=== PATIENT | female | born 1980 | race Caucasian/White ===

== ENCOUNTER 2023-01-27 13:05 | Inpatient (IN) | payer OTHER ==
[2023-01-27] MEDS ORDERED: DEXTROSE 5%-LACTATED RINGERS 1,000 ML IV SCH (16:50)
[2023-01-27] MEDS ORDERED: BETAMET ACET/BETAMET NA PH 30 MG/5 ML VIAL ONE (16:53)
[2023-01-27] MEDS ORDERED: BETAMET ACET/BETAMET NA PH 30 MG/5 ML VIAL IM ONE (17:00)
[2023-01-27] MEDS ORDERED: AMPICILLIN SODIUM 2 GM VIAL ONE (17:06)
[2023-01-27 17:29] VITALS: BMI 27.4
[2023-01-27] MEDS ORDERED: AMPICILLIN - 2 GM in SODIUM CHLORIDE 100 ML IVPB SCH (17:40)
[2023-01-27 17:58] LABS: BASO % 0.3 % (0-2.0); EOS % 0.2 % (0-4.5); HEMATOCRIT 34.2 % (32.4-45.2); HEMOGLOBIN 11.4 GM/dL (10.7-15.3); INR 0.98 (0.83-1.09); LYMPH % 20.2 % (8-40); MCH 27.7 pg (25.7-33.7); MCHC 33.2 g/dl (32.0-36.0); MEAN CELL VOLUME 83.4 fl (80-96); MEAN PLT VOLUME 7.9 fl (7.5-11.1); MONO % 7.5 % (3.8-10.2); NEUT % 71.8 % (42.8-82.8); PLATELET COUNT 209 10^3/uL (134-434); PROTHROMBIN TIME (PATIENT) 11.4 SEC (9.7-13.0); RDW 13.2 % (11.6-15.6)
[2023-01-27 18:01] LABS: ACTIVATED PTT 27.7 SECONDS (25.2-36.5)
[2023-01-27 18:09] LABS: POTASSIUM 3.8 mmol/L (3.5-5.1)
[2023-01-27 18:11] LABS: ALBUMIN 2.8 g/dl (3.4-5.0); BLOOD UREA NITROGEN 8.2 mg/dL (7-18); CALCIUM 8.6 mg/dL (8.5-10.1)
[2023-01-27 18:14] LABS: CREATININE 0.5 mg/dL (0.55-1.3)
[2023-01-27 18:16] LABS: BILIRUBIN,TOTAL 0.3 mg/dL (0.2-1); TOT PROT 6.5 g/dl (6.4-8.2)
[2023-01-27 18:35] LABS: SYPHILIS W/ RPR CONF NON-REACTIVE (NONREACTIVE)
[2023-01-27 19:04] LABS: HIV INTERPRETATION NEGATIVE (NEGATIVE)
[2023-01-27 20:07] LABS: COCAINE, UR NEGATIVE (NEGATIVE)
[2023-01-27 20:09] LABS: METHADONE, UR NEGATIVE (NEGATIVE); OPIATES, URI NEGATIVE (NEGATIVE); PHENCYCLIDINE,URINE NEGATIVE (NEGATIVE); URINE AMPHETAMINES NEGATIVE (NEGATIVE); URINE BARBITURATES NEGATIVE (NEGATIVE); URINE BENZODIAZEPINES NEGATIVE (NEGATIVE)
[2023-01-27] MEDS ORDERED: CITRIC ACID/SODIUM CITRATE 30 ML UNIT-DOSE CUP PO ONE (20:45)
[2023-01-27] MEDS ORDERED: MISOPROSTOL 200 MCG TABLET ONE (20:50)
[2023-01-27] MEDS ORDERED: morphine SULFATE/PF 1 MG/2 ML (2cc Syringe - QUVA) ONE (21:05)
[2023-01-27] MEDS ORDERED: FENTANYL CITRATE/PF 50 MCG/ML VIAL ONE (21:05)
[2023-01-27] MEDS ORDERED: METHYLERGONOVINE MALEATE 0.2 MG/1 ML AMP IM PRN (22:41)
[2023-01-27] MEDS ORDERED: ACETAMINOPHEN 325 MG TABLET (FP) PO PRN (22:41)
[2023-01-27] MEDS ORDERED: ACETAMINOPHEN 1000 MG/100 ML BAG IVPB PRN (22:44)
[2023-01-27] MEDS ORDERED: ONDANSETRON 4 MG/2 ML VIAL IVPUSH PRN (22:45)
[2023-01-27] MEDS ORDERED: morphine SULFATE/PF 1 MG/2 ML (2cc Syringe - QUVA) SPIN ONE (22:45)
[2023-01-27] MEDS ORDERED: KETOROLAC TROMETHAMINE 30 MG/1 ML VIAL IVPUSH ONE (22:47)
[2023-01-27] MEDS ORDERED: ACETAMINOPHEN 1000 MG/100 ML BAG IVPB ONE (22:47)
[2023-01-27 23:05] LABS: CORD BASE EXCESS -0.2 mmol/L (0-2); CORD HCO3 26.4 mmHg (20-29); CORD PCO2 50.4 mmHg (30-78); CORD pH 7.337 (7.14-7.44)
[2023-01-27 23:06] LABS: CORD HCO3 21.4 mmHg (20-29); CORD PCO2 36.5 mmHg (30-78); CORD pH 7.386 (7.14-7.44)
[2023-01-27] MEDS: OXYTOCIN 20 UNITS in 0.9% NS 20 UNIT/1,000 ML INFUS.BAG IV SCH (23:10)
[2023-01-28] MEDS ORDERED: CEFAZOLIN SODIUM 2 GM VIAL ONE (00:23)
[2023-01-28] MEDS ORDERED: DEXTROSE 5%-WATER 100 ML IVPB ONE (00:23)
[2023-01-28] MEDS: CEFAZOLIN SODIUM 2 GM in DEXTROSE 5%-WATER 100 ML IVPB SCH ×3 (00:45→13:57)
[2023-01-28 08:45] LABS: HEMOGLOBIN 10.6 GM/dL (10.7-15.3); MCH 27.3 pg (25.7-33.7); MCHC 32.2 g/dl (32.0-36.0); MEAN CELL VOLUME 84.8 fl (80-96); MEAN PLT VOLUME 8.1 fl (7.5-11.1); PLATELET COUNT 229 10^3/uL (134-434); RBC 3.89 M/mm3 (3.60-5.2); RDW 12.8 % (11.6-15.6); WHITE BLOOD COUNT 21.3 K/mm3 (4.0-10.0)
[2023-01-28] MEDS: IBUPROFEN 600 MG TABLET (FP) PO PRN ×2 (09:04→21:11)
[2023-01-28] MEDS: ENOXAPARIN NA (PORCINE) 40 MG/0.4 ML DISP.SYRIN SQ SCH (09:05)
[2023-01-28 09:35] LABS: ANISOCYTOSIS 0; HELMET CELLS 0; HOWELL-JOLLY BODIES 0; MACROCYTOSIS 0; OVALOCYTE 0; ROULEAU 0; SICKELED CELLS 0; TARGET CELLS 0; TEAR DROP CELLS 0; TOXIC GRANULATION 0
[2023-01-28] MEDS: OXYTOCIN 20 UNITS in 0.9% NS 20 UNIT/1,000 ML INFUS.BAG IV SCH ×2 (09:41→23:09)
[2023-01-28] MEDS ORDERED: oxyCODONE HCL 5 MG TABLET PO PRN (10:41)
[2023-01-28] MEDS: SIMETHICONE 80 MG TAB.CHEW (FP) PO PRN (21:11)
[2023-01-28] MEDS: diphenhydrAMINE HCL 25 MG CAPSULE (FP) PO PRN (22:14)
[2023-01-29] MEDS: SIMETHICONE 80 MG TAB.CHEW (FP) PO PRN (06:13)
[2023-01-29] MEDS: IBUPROFEN 600 MG TABLET (FP) PO PRN (06:13)
[2023-01-29 07:48] LABS: HEMATOCRIT 28.7 % (32.4-45.2); HEMOGLOBIN 9.6 GM/dL (10.7-15.3); MCH 27.7 pg (25.7-33.7); MCHC 33.4 g/dl (32.0-36.0); MEAN CELL VOLUME 82.9 fl (80-96); MEAN PLT VOLUME 7.5 fl (7.5-11.1); PLATELET COUNT 211 10^3/uL (134-434); RBC 3.46 M/mm3 (3.60-5.2); RDW 13.1 % (11.6-15.6); WHITE BLOOD COUNT 14.3 K/mm3 (4.0-10.0)
[2023-01-29 08:52] LABS: ANISOCYTOSIS 0; MACROCYTOSIS 0
[2023-01-29] MEDS: oxyCODONE HCL 5 MG TABLET PO PRN ×2 (09:20→17:09)
[2023-01-29] MEDS: ENOXAPARIN NA (PORCINE) 40 MG/0.4 ML DISP.SYRIN SQ SCH (09:20)
[2023-01-29 22:37] VITALS: RESP 18
[2023-01-30 08:00] LABS: HEMATOCRIT 30.1 % (32.4-45.2); MCH 27.9 pg (25.7-33.7); MCHC 33.1 g/dl (32.0-36.0); MEAN CELL VOLUME 84.2 fl (80-96); MEAN PLT VOLUME 8.1 fl (7.5-11.1); PLATELET COUNT 222 10^3/uL (134-434); RBC 3.57 M/mm3 (3.60-5.2); RDW 12.7 % (11.6-15.6); WHITE BLOOD COUNT 12.9 K/mm3 (4.0-10.0)
[2023-01-30 08:56] LABS: ANISOCYTOSIS 1+; MACROCYTOSIS 0
[2023-01-30] MEDS: ENOXAPARIN NA (PORCINE) 40 MG/0.4 ML DISP.SYRIN SQ SCH (09:56)
[2023-01-30] MEDS: IBUPROFEN 600 MG TABLET (FP) PO PRN ×2 (09:58→17:15)
[2023-01-30] MEDS: SIMETHICONE 80 MG TAB.CHEW (FP) PO PRN ×2 (09:58→21:49)
[2023-01-30] MEDS: BISACODYL 10 MG SUPP.RECT RC PRN (10:07)
[2023-01-30] MEDS: oxyCODONE HCL 5 MG TABLET PO PRN ×2 (11:39→22:19)
[2023-01-30] MEDS: diphenhydrAMINE HCL 25 MG CAPSULE (FP) PO PRN (21:49)
[2023-01-31 08:40] VITALS: BP 102/57; PULSE 81; TEMP 98.5
[2023-01-31 09:36] LABS: POC NITRAZINE POS
[2023-01-31] MEDS: BISACODYL 10 MG SUPP.RECT RC PRN (09:48)
[2023-01-31] MEDS: IBUPROFEN 600 MG TABLET (FP) PO PRN (09:48)
[2023-01-31] MEDS: ENOXAPARIN NA (PORCINE) 40 MG/0.4 ML DISP.SYRIN SQ SCH (09:54)
== END 2023-01-31 13:44 | disposition home or self-care (01) | DRG 540 ==
LOC: JDEL 13:05 → JLDR 16:45 → J3W 01-28 00:24
PROVIDERS: ADMIT Obstetrics & Gynecology; ATTEND Obstetrics & Gynecology
PROC: 10D00Z1 Extraction of Products of Conception, Low, Open Approach (ICD-10-PCS; principal; 2023-01-27)
DX: O42.913 Preterm premature rupture of membranes, unspecified as to length of time between rupture and onset of labor, third trimester (principal); O67.8 Other intrapartum hemorrhage; Z3A.34 34 weeks gestation of pregnancy; Z37.0 Single live birth
CPT/HCPCS: 36415; 36600; 80048; 80053; 80307; 82803; 83986-QW; 85025; 85610; 85730; 86780; 86922; 87340; 87389; 88307-TC; 96372